=== PATIENT | female | born 1980 | race African-American/Black ===

== ENCOUNTER → 2017-12-05 | Outpatient (CLI) | payer OTHER | END | disposition home or self-care (01) | LOC: US 14:57 | DX: E04.1 Nontoxic single thyroid nodule (principal) | CPT/HCPCS: 76536 ==

== ENCOUNTER 2018-03-25 09:11 | Observation (INO) | payer OTHER ==
[2018-03-25] VITALS (8 sets, daily range): BP systolic 119–177; BP diastolic 72–77
[~2018-03-25] VITALS: Ht 165.1 cm; Wt 97.2 kg
[2018-03-25] MEDS ORDERED: LIDOCAINE 1% PF 2 ML VIAL. ID PRN (09:45)
[2018-03-25] MEDS ORDERED: fentaNYL PF VIAL 100 MCG/2 ML VIAL IV PRN (09:45)
[2018-03-25] MEDS ORDERED: MIDAZOLAM HCL/PF 2 MG/2 ML VIAL. IV PRN (09:45)
[2018-03-25] MEDS: IV RINGERS,LACTATED 1000ML 1,000 ML IV SCH ×2 (10:00→17:45)
[2018-03-25] MEDS ORDERED: LIDOCAINE 2% PF Vial for OR 5 ML VIAL. ONE ×2 (10:10→14:27)
[2018-03-25] MEDS ORDERED: fentaNYL PF VIAL 100 MCG/2 ML VIAL ONE ×5 (10:10→16:20)
[2018-03-25] MEDS ORDERED: PROPOFOL 20 ML IV ONE ×2 (10:10→11:29)
[2018-03-25] MEDS ORDERED: MIDAZOLAM HCL/PF 2 MG/2 ML VIAL. ONE (10:10)
[2018-03-25 10:18] LABS: BASO % 1 % (0-3); EOS # 0.1 x10^3/uL (0.0-0.7); EOS % 2 % (0-3); HEMATOCRIT 40.1 % (36.0-47.0); HEMOGLOBIN 13.1 g/dL (12.0-15.5); LYMPH # 1.6 x10^3/uL (1.0-4.8); LYMPH % 26 % (24-48); MEAN CORPUSCULAR HEMOGLOBIN 25 pg (25-35); MEAN CORPUSCULAR HGB CONC 33 g/dL (31-37); MEAN CORPUSCULAR VOLUME 77 fL (79-100); MONO # 0.4 x10^3/uL (0.0-1.1); MONO % 6 % (0-9); NEUT # 4.1 x10^3uL (1.8-7.7); NEUT % 66 % (31-73); PLATELET COUNT 306 x10^3/uL (140-400); RED BLOOD COUNT 5.19 x10^6/uL (3.50-5.40); RED CELL DISTRIBUTION WIDTH 16.9 % (11.5-14.5); WHITE BLOOD COUNT 6.2 x10^3/uL (4.0-11.0)
[2018-03-25 10:20] LABS: U PREG PATIENT NEGATIVE (NEG)
[2018-03-25 10:27] LABS: CALCIUM 9.2 mg/dL (8.5-10.1); CREATININE 0.8 mg/dL (0.6-1.0); GFR 98.2; POTASSIUM 4.1 mmol/L (3.5-5.1)
[2018-03-25 10:33] LABS: ALBUMIN 3.4 g/dL (3.4-5.0); TOTAL PROTEIN 8.1 g/dL (6.4-8.2)
[2018-03-25 10:34] LABS: ALBUMIN/GLOBULIN RATIO 0.7 (1.0-1.7); TOTAL BILIRUBIN 0.3 mg/dL (0.2-1.0)
[2018-03-25] MEDS ORDERED: DEXAMETHASONE SOD PHOS 20 MG/5 ML VIAL. ONE (10:38)
[2018-03-25] MEDS ORDERED: ONDANSETRON PF 4 MG/2 ML VIAL. ONE (10:38)
[2018-03-25] MEDS ORDERED: SUCCINYLCHOLINE 200 MG/10 ML VIAL. ONE (10:39)
[2018-03-25 10:40] LABS: PROTHROMBIN TIME PATIENT 13.5 SEC (11.7-14.0)
--- NOTE | 2018-03-25 11:21 | PDOC ---
SURGICAL PROGRESS NOTE Subjective No change in dictated H&P. Vital Signs Vital Signs Date Time Temp Pulse Resp B/P (MAP) Pulse Ox O2 Delivery O2 Flow Rate FiO2 03/25/18 09:41 97.4 89 18 119/69 98 Room Air 97.4 Labs Laboratory Tests Test 03/25/18 09:20 03/25/18 09:55 Urine Test Negative (NEG) White Blood Count 6.2 x10^3/uL (4.0-11.0) Red Blood Count 5.19 x10^6/uL (3.50-5.40) Hemoglobin 13.1 g/dL (12.0-15.5) Hematocrit 40.1 % (36.0-47.0) Mean Corpuscular Volume 77 fL (79-100) Mean Corpuscular Hemoglobin 25 pg (25-35) Mean Corpuscular Hemoglobin Concent 33 g/dL (31-37) Red Cell Distribution Width 16.9 % (11.5-14.5) Platelet Count 306 x10^3/uL (140-400) Neutrophils (%) (Auto) 66 % (31-73) Lymphocytes (%) (Auto) 26 % (24-48) Monocytes (%) (Auto) 6 % (0-9) Eosinophils (%) (Auto) 2 % (0-3) Basophils (%) (Auto) 1 % (0-3) Neutrophils # (Auto) 4.1 x10^3uL (1.8-7.7) Lymphocytes # (Auto) 1.6 x10^3/uL (1.0-4.8) Monocytes # (Auto) 0.4 x10^3/uL (0.0-1.1) Eosinophils # (Auto) 0.1 x10^3/uL (0.0-0.7) Basophils # (Auto) 0.0 x10^3/uL (0.0-0.2) Prothrombin Time 13.5 SEC (11.7-14.0) Prothromb Time International Ratio 1.1 (0.8-1.1) Activated Partial Thromboplast Time 29 SEC (24-38) Sodium Level 137 mmol/L (136-145) Potassium Level 4.1 mmol/L (3.5-5.1) Chloride Level 103 mmol/L (98-107) Carbon Dioxide Level 25 mmol/L (21-32) Anion Gap 9 (6-14) Blood Urea Nitrogen 7 mg/dL (7-20) Creatinine 0.8 mg/dL (0.6-1.0) Estimated GFR (Cockcroft-Gault) 98.2 BUN/Creatinine Ratio 9 (6-20) Glucose Level 108 mg/dL (70-99) Calcium Level 9.2 mg/dL (8.5-10.1) Total Bilirubin 0.3 mg/dL (0.2-1.0) Aspartate Amino Transf (AST/SGOT) 21 U/L (15-37) Alanine Aminotransferase (ALT/SGPT) 23 U/L (14-59) Alkaline Phosphatase 88 U/L (46-116) Total Protein 8.1 g/dL (6.4-8.2) Albumin 3.4 g/dL (3.4-5.0) Albumin/Globulin Ratio 0.7 (1.0-1.7) Laboratory Tests Test 03/25/18 09:20 03/25/18 09:55 Urine Test Negative (NEG) White Blood Count 6.2 x10^3/uL (4.0-11.0) Red Blood Count 5.19 x10^6/uL (3.50-5.40) Hemoglobin 13.1 g/dL (12.0-15.5) Hematocrit 40.1 % (36.0-47.0) Mean Corpuscular Volume 77 fL (79-100) Mean Corpuscular Hemoglobin 25 pg (25-35) Mean Corpuscular Hemoglobin Concent 33 g/dL (31-37) Red Cell Distribution Width 16.9 % (11.5-14.5) Platelet Count 306 x10^3/uL (140-400) Neutrophils (%) (Auto) 66 % (31-73) Lymphocytes (%) (Auto) 26 % (24-48) Monocytes (%) (Auto) 6 % (0-9) Eosinophils (%) (Auto) 2 % (0-3) Basophils (%) (Auto) 1 % (0-3) Neutrophils # (Auto) 4.1 x10^3uL (1.8-7.7) Lymphocytes # (Auto) 1.6 x10^3/uL (1.0-4.8) Monocytes # (Auto) 0.4 x10^3/uL (0.0-1.1) Eosinophils # (Auto) 0.1 x10^3/uL (0.0-0.7) Basophils # (Auto) 0.0 x10^3/uL (0.0-0.2) Prothrombin Time 13.5 SEC (11.7-14.0) Prothromb Time International Ratio 1.1 (0.8-1.1) Activated Partial Thromboplast Time 29 SEC (24-38) Sodium Level 137 mmol/L (136-145) Potassium Level 4.1 mmol/L (3.5-5.1) Chloride Level 103 mmol/L (98-107) Carbon Dioxide Level 25 mmol/L (21-32) Anion Gap 9 (6-14) Blood Urea Nitrogen 7 mg/dL (7-20) Creatinine 0.8 mg/dL (0.6-1.0) Estimated GFR (Cockcroft-Gault) 98.2 BUN/Creatinine Ratio 9 (6-20) Glucose Level 108 mg/dL (70-99) Calcium Level 9.2 mg/dL (8.5-10.1) Total Bilirubin 0.3 mg/dL (0.2-1.0) Aspartate Amino Transf (AST/SGOT) 21 U/L (15-37) Alanine Aminotransferase (ALT/SGPT) 23 U/L (14-59) Alkaline Phosphatase 88 U/L (46-116) Total Protein 8.1 g/dL (6.4-8.2) Albumin 3.4 g/dL (3.4-5.0) Albumin/Globulin Ratio 0.7 (1.0-1.7) CHERIE CHÁVEZ MD Mar 25, 2018 11:21
--- NOTE | 2018-03-25 11:21 | HP ---
ADMIT DATE: 03/25/2018 HISTORY OF PRESENT ILLNESS: The patient had been referred to me because of a large thyroid mass. She has been worked up and found to have a huge mass of the right thyroid, displacing the trachea quite a bit to the left. She has had this mass for about 20 years and it has gotten larger and causes her difficulty sleeping at night when she lies down and she cannot breathe. Otherwise, she appears to be relatively well and does not have trouble eating. PAST MEDICAL HISTORY: Shows that she has had normal childhood diseases. She does not have hypertension or other diseases that she is treated for and takes no medicine. She has no allergies and otherwise is doing well. She is about 7-8 months post-delivery of a child obviously. SOCIAL HISTORY: Shows she does not smoke, drink or use drugs. FAMILY HISTORY: Positive, in that she has, I think 2 sisters and aunts that have goiter, someone has had surgery. She is from [place], but otherwise no other significant family history. REVIEW OF SYSTEMS: Shows she has only the problem with the sleeping at night. She gets short of breath and gets start to choke with this thyroid there. Otherwise, she has no trouble eating, walking or doing other activities. She has no GI symptoms or respiratory or cardiovascular problems. PHYSICAL EXAMINATION: GENERAL: Shows an alert female, in no acute distress. HEAD, EARS, EYES, NOSE AND THROAT: Grossly normal. CHEST: Clear to auscultation bilaterally. HEART: Had no murmurs, heaves, friction rubs or thrills and had a rate of about 75 beats per minute and it was regular. ABDOMEN: Grossly normal. NECK: Examination of the neck; however, did show a large mass anterior and to the right of the trachea. It appears to be relatively high and is not very tender. It appears to be where thyroid should be, but it is quite obvious and protuberant being the part that we could see, probably 4-6 cm in size. EXTREMITIES: Grossly normal. RECTAL AND PELVIC Not done. IMPRESSION: Large goiter of the neck. CHERIE CHÁVEZ MD DR: LINCOLN/carmencita JOB#: [id number] / [id number]
--- NOTE | 2018-03-25 11:24 | PDOC ---
SURGICAL PROGRESS NOTE Subjective Op Note: surgeon.............................................Louis Pre op diag.......................................large symptomatic goiter Post op diag......................................same Anesthesia........................................General Procedure..........................................thyroidectomy Blood loss........................................25cc Drains..............................................none Fluids..............................................see anesthesia sheet Condition.........................................satisfactory Vital Signs Vital Signs Date Time Temp Pulse Resp B/P (MAP) Pulse Ox O2 Delivery O2 Flow Rate FiO2 03/25/18 09:41 97.4 89 18 119/69 98 Room Air 97.4 Labs Laboratory Tests Test 03/25/18 09:20 03/25/18 09:55 Urine Test Negative (NEG) White Blood Count 6.2 x10^3/uL (4.0-11.0) Red Blood Count 5.19 x10^6/uL (3.50-5.40) Hemoglobin 13.1 g/dL (12.0-15.5) Hematocrit 40.1 % (36.0-47.0) Mean Corpuscular Volume 77 fL (79-100) Mean Corpuscular Hemoglobin 25 pg (25-35) Mean Corpuscular Hemoglobin Concent 33 g/dL (31-37) Red Cell Distribution Width 16.9 % (11.5-14.5) Platelet Count 306 x10^3/uL (140-400) Neutrophils (%) (Auto) 66 % (31-73) Lymphocytes (%) (Auto) 26 % (24-48) Monocytes (%) (Auto) 6 % (0-9) Eosinophils (%) (Auto) 2 % (0-3) Basophils (%) (Auto) 1 % (0-3) Neutrophils # (Auto) 4.1 x10^3uL (1.8-7.7) Lymphocytes # (Auto) 1.6 x10^3/uL (1.0-4.8) Monocytes # (Auto) 0.4 x10^3/uL (0.0-1.1) Eosinophils # (Auto) 0.1 x10^3/uL (0.0-0.7) Basophils # (Auto) 0.0 x10^3/uL (0.0-0.2) Prothrombin Time 13.5 SEC (11.7-14.0) Prothromb Time International Ratio 1.1 (0.8-1.1) Activated Partial Thromboplast Time 29 SEC (24-38) Sodium Level 137 mmol/L (136-145) Potassium Level 4.1 mmol/L (3.5-5.1) Chloride Level 103 mmol/L (98-107) Carbon Dioxide Level 25 mmol/L (21-32) Anion Gap 9 (6-14) Blood Urea Nitrogen 7 mg/dL (7-20) Creatinine 0.8 mg/dL (0.6-1.0) Estimated GFR (Cockcroft-Gault) 98.2 BUN/Creatinine Ratio 9 (6-20) Glucose Level 108 mg/dL (70-99) Calcium Level 9.2 mg/dL (8.5-10.1) Total Bilirubin 0.3 mg/dL (0.2-1.0) Aspartate Amino Transf (AST/SGOT) 21 U/L (15-37) Alanine Aminotransferase (ALT/SGPT) 23 U/L (14-59) Alkaline Phosphatase 88 U/L (46-116) Total Protein 8.1 g/dL (6.4-8.2) Albumin 3.4 g/dL (3.4-5.0) Albumin/Globulin Ratio 0.7 (1.0-1.7) Laboratory Tests Test 03/25/18 09:20 03/25/18 09:55 Urine Test Negative (NEG) White Blood Count 6.2 x10^3/uL (4.0-11.0) Red Blood Count 5.19 x10^6/uL (3.50-5.40) Hemoglobin 13.1 g/dL (12.0-15.5) Hematocrit 40.1 % (36.0-47.0) Mean Corpuscular Volume 77 fL (79-100) Mean Corpuscular Hemoglobin 25 pg (25-35) Mean Corpuscular Hemoglobin Concent 33 g/dL (31-37) Red Cell Distribution Width 16.9 % (11.5-14.5) Platelet Count 306 x10^3/uL (140-400) Neutrophils (%) (Auto) 66 % (31-73) Lymphocytes (%) (Auto) 26 % (24-48) Monocytes (%) (Auto) 6 % (0-9) Eosinophils (%) (Auto) 2 % (0-3) Basophils (%) (Auto) 1 % (0-3) Neutrophils # (Auto) 4.1 x10^3uL (1.8-7.7) Lymphocytes # (Auto) 1.6 x10^3/uL (1.0-4.8) Monocytes # (Auto) 0.4 x10^3/uL (0.0-1.1) Eosinophils # (Auto) 0.1 x10^3/uL (0.0-0.7) Basophils # (Auto) 0.0 x10^3/uL (0.0-0.2) Prothrombin Time 13.5 SEC (11.7-14.0) Prothromb Time International Ratio 1.1 (0.8-1.1) Activated Partial Thromboplast Time 29 SEC (24-38) Sodium Level 137 mmol/L (136-145) Potassium Level 4.1 mmol/L (3.5-5.1) Chloride Level 103 mmol/L (98-107) Carbon Dioxide Level 25 mmol/L (21-32) Anion Gap 9 (6-14) Blood Urea Nitrogen 7 mg/dL (7-20) Creatinine 0.8 mg/dL (0.6-1.0) Estimated GFR (Cockcroft-Gault) 98.2 BUN/Creatinine Ratio 9 (6-20) Glucose Level 108 mg/dL (70-99) Calcium Level 9.2 mg/dL (8.5-10.1) Total Bilirubin 0.3 mg/dL (0.2-1.0) Aspartate Amino Transf (AST/SGOT) 21 U/L (15-37) Alanine Aminotransferase (ALT/SGPT) 23 U/L (14-59) Alkaline Phosphatase 88 U/L (46-116) Total Protein 8.1 g/dL (6.4-8.2) Albumin 3.4 g/dL (3.4-5.0) Albumin/Globulin Ratio 0.7 (1.0-1.7) CHERIE CHÁVEZ MD Mar 25, 2018 11:24
[2018-03-25] MEDS ORDERED: ESMOLOL 100 MG/10 ML VIAL. IV ONE (12:35)
[2018-03-25] MEDS ORDERED: DESFLURANE > 120 MINUTES IH ONE (12:35)
[2018-03-25] MEDS ORDERED: GELATIN SPONGE SIZE 100. ONE (12:39)
[2018-03-25] MEDS ORDERED: THROMBIN TOPICAL 5,000 UNIT VIAL. ONE ×2 (12:40→13:16)
[2018-03-25] MEDS ORDERED: PHENYLEPHRINE in 0.9% NACL PF 1 MG/10 ML SYRINGE. IV ONE (14:00)
[2018-03-25] MEDS ORDERED: 0.9 % SODIUM CHLORIDE 10 ML DISP.SYRIN. IV PRN (15:15)
[2018-03-25] MEDS ORDERED: ONDANSETRON PF 4 MG/2 ML VIAL. IV PRN (15:15)
[2018-03-25] MEDS ORDERED: HYDROcodone/APAP 5/325MG 1 TAB TABLET PO PRN (15:15)
[2018-03-25] MEDS: fentaNYL PF VIAL 100 MCG/2 ML VIAL IV PRN ×3 (15:35→16:31)
[2018-03-25] MEDS: POTASSIUM CL 20MEQ-0.45% NACL 1,000 ML IV SCH (17:02)
[2018-03-25] MEDS ORDERED: MEDR150V3 IM (17:07)
[2018-03-25] MEDS ORDERED: IV NORMAL SALINE 1000ML BAG 1,000 ML IV SCH (19:37)
[2018-03-25] MEDS ORDERED: MORPHINE SULFATE/PF 30 ML IV PRN (19:45)
[2018-03-25] MEDS ORDERED: NALOXONE 0.4 MG/ML VIAL. IV PRN (19:45)
[2018-03-25] MEDS: DOCUSATE SODIUM 100 MG CAPSULE. PO SCH (21:00)
[2018-03-25] MEDS: FAMOTIDINE 20 MG/2 ML VIAL IVP SCH (21:31)
[2018-03-26 03:25] VITALS: BP 114/68
[2018-03-26] MEDS: POTASSIUM CL 20MEQ-0.45% NACL 1,000 ML IV SCH ×2 (03:50→12:15)
--- NOTE | 2018-03-26 04:33 | OP ---
DATE OF SURGERY: INDICATION: The patient comes to the hospital and surgical room because of a large goiter, mostly on the right side, which was causing her discomfort and she was having trouble breathing and being choked at night. She was euthyroid by our scans and lab tests done prior to surgery. She wishes to have this removed, as she was having more and more difficulty sleeping and breathing. DETAILS OF PROCEDURE: As such, the patient was properly prepped and draped in routine fashion. A collar incision was made following the skin lines with a 15 blade about a centimeter or two above the sternal notch. We followed the skin lines, as this would give the best her cosmetic result. We made an incision little larger than normal between the medial edges of the sternocleidomastoid muscles or more. We then identified the platysma muscle, went through this with cautery. We then developed flaps high up in the neck under the platysma muscle and down towards the sternal notch. We did this mostly with cautery and small bleeders were controlled with cautery. We had trouble identifying the midline as a large mass, which was about 8-10 cm in size. It was there and had distorted the anatomy tremendously. As such, we divided between the strap muscles and we were able to get down to the fascia. The false thyroid capsule then went under this and to the thyroid. We then used fingers, mostly to go around this mass and delivered it somewhat into the wound. Luckily, we did not have to divide the strap muscles. We pulled it up and it was easier with this large mass to divide the superior vessels first. We did this and it should be noted that there were very large vessels to this very large mass and this was thyroid tissue and this was completely removed on the right. We slowly took down the vessels to go into the superior portion of the thyroid and tied with 2-0 and 0 silk sutures. We had to use large sutures because of the size of the vessels. We slowly did this in a serial fashion staying relatively close to the thyroid making certain not to damage the parathyroids. We did this, then were able to deliver more and divided the lateral vein and tied it and then get the inferior portions. We then went past the isthmus on the front of the trachea over to the left side. We decided it would be easier to remove this and did send to pathologist and pathologist said he could not do anything permanent sections and could not tell me if it was a tumor or not. We did identify the recurrent laryngeal nerve on the right and did not damage it during the procedure. The NIMs was used also. We then could not find a large mass in the left thyroid. We called the radiologist and reviewed all the films and there was just a small cyst, nothing that looked malignant on that side and in the view of her fairly brisk bleeding, losing about 300 mL, we decided best to leave this and not deal with this at this point, as there was no evidence that it was significantly diseased and not enlarged. The patient had this mass for about 15 years and therefore, we felt that it would not be malignant. At any rate, we then amputated the thyroid gland with the isthmus. There was fair amount of brisk bleeding, which we had used suture ligatures of 2-0 silk to stop the bleeding. We did stop all the bleeding, applied Gelfoam with thrombin to the area and there was no further bleeding or oozing from anywhere. We inspected the area. No further difficulties were noted. We decided not to use a drain, as there was no further bleeding and talked to the pathologist and did not remove the left side. We then proceeded to close the wound as we irrigated the wound and then approximated the platysmas with an interrupted 4-0 Vicryl and then the skin was closed using 6-0 interrupted nylon. A sterile dressing was applied and the procedure was terminated. Blood loss as stated before was about 300 mL. Fluids given can be obtained from the anesthesia sheet. No drains were used. The patient had no difficulties during the procedure and operation was terminated. Before we sent the patient to recovery room, we did do direct laryngoscopy and saw that both vocal cords were working normally. This terminated the procedure. As stated before, there were no drains. ESTIMATED BLOOD LOSS: 300 mL. FLUIDS GIVEN: Can be obtained from the anesthesia sheet. CONDITION OF THE PATIENT: Satisfactory as she is returned to the recovery room. CHERIE CHÁVEZ MD DR: LINCOLN/carmencita JOB#: [id number] / [id number]
[2018-03-26 05:13] LABS: BASO % 0 % (0-3); EOS % 0 % (0-3); HEMATOCRIT 33.3 % (36.0-47.0); LYMPH # 0.8 x10^3/uL (1.0-4.8); LYMPH % 7 % (24-48); MEAN CORPUSCULAR HEMOGLOBIN 25 pg (25-35); MEAN CORPUSCULAR HGB CONC 33 g/dL (31-37); MEAN CORPUSCULAR VOLUME 77 fL (79-100); MONO # 0.5 x10^3/uL (0.0-1.1); MONO % 4 % (0-9); NEUT # 10.8 x10^3uL (1.8-7.7); NEUT % 90 % (31-73); PLATELET COUNT 326 x10^3/uL (140-400); RED BLOOD COUNT 4.35 x10^6/uL (3.50-5.40); RED CELL DISTRIBUTION WIDTH 17.3 % (11.5-14.5); WHITE BLOOD COUNT 12.1 x10^3/uL (4.0-11.0)
[2018-03-26 06:04] LABS: CALCIUM 8.5 mg/dL (8.5-10.1); CREATININE 0.8 mg/dL (0.6-1.0); GFR 98.2; POTASSIUM 4.1 mmol/L (3.5-5.1)
[2018-03-26 06:09] LABS: ALBUMIN/GLOBULIN RATIO 0.7 (1.0-1.7); TOTAL BILIRUBIN 0.3 mg/dL (0.2-1.0); TOTAL PROTEIN 7.2 g/dL (6.4-8.2)
[2018-03-26 07:00] VITALS: BP 118/71
[2018-03-26] MEDS: DOCUSATE SODIUM 100 MG CAPSULE. PO SCH (09:00)
[2018-03-26] MEDS: FAMOTIDINE 20 MG/2 ML VIAL IVP SCH (09:12)
--- NOTE | 2018-03-26 10:21 | PDOC ---
SURGICAL PROGRESS NOTE Subjective POD# 1 Doing well with normal voice and has the expected "sore throat". Lab noted and CA is normal \\. Dressing changed and there is no hematoma or bleeding. Has the expected stiffness. Will discharge today and instruction given. Will give tynlenol eloixir with cod for pain and likely start sythroid later as outpatient. Vital Signs Vital Signs Date Time Temp Pulse Resp B/P (MAP) Pulse Ox O2 Delivery O2 Flow Rate FiO2 03/26/18 08:00 Room Air 03/26/18 07:00 98.8 103 18 118/71 (87) 97 98.8 03/25/18 15:35 10.0 I&O Intake and Output 03/26/18 07:00 Intake Total 2620 ml Output Total 860 ml Balance 1760 ml Intake Oral 320 ml IV Total 2300 ml Output Urine Total 360 ml Estimated Blood Loss 500 ml # Voids 3 Labs Laboratory Tests Test 03/25/18 09:20 03/25/18 09:55 03/26/18 04:00 Urine Test Negative (NEG) White Blood Count 6.2 x10^3/uL (4.0-11.0) 12.1 x10^3/uL (4.0-11.0) Red Blood Count 5.19 x10^6/uL (3.50-5.40) 4.35 x10^6/uL (3.50-5.40) Hemoglobin 13.1 g/dL (12.0-15.5) 11.0 g/dL (12.0-15.5) Hematocrit 40.1 % (36.0-47.0) 33.3 % (36.0-47.0) Mean Corpuscular Volume 77 fL (79-100) 77 fL (79-100) Mean Corpuscular Hemoglobin 25 pg (25-35) 25 pg (25-35) Mean Corpuscular Hemoglobin Concent 33 g/dL (31-37) 33 g/dL (31-37) Red Cell Distribution Width 16.9 % (11.5-14.5) 17.3 % (11.5-14.5) Platelet Count 306 x10^3/uL (140-400) 326 x10^3/uL (140-400) Neutrophils (%) (Auto) 66 % (31-73) 90 % (31-73) Lymphocytes (%) (Auto) 26 % (24-48) 7 % (24-48) Monocytes (%) (Auto) 6 % (0-9) 4 % (0-9) Eosinophils (%) (Auto) 2 % (0-3) 0 % (0-3) Basophils (%) (Auto) 1 % (0-3) 0 % (0-3) Neutrophils # (Auto) 4.1 x10^3uL (1.8-7.7) 10.8 x10^3uL (1.8-7.7) Lymphocytes # (Auto) 1.6 x10^3/uL (1.0-4.8) 0.8 x10^3/uL (1.0-4.8) Monocytes # (Auto) 0.4 x10^3/uL (0.0-1.1) 0.5 x10^3/uL (0.0-1.1) Eosinophils # (Auto) 0.1 x10^3/uL (0.0-0.7) 0.0 x10^3/uL (0.0-0.7) Basophils # (Auto) 0.0 x10^3/uL (0.0-0.2) 0.0 x10^3/uL (0.0-0.2) Prothrombin Time 13.5 SEC (11.7-14.0) Prothromb Time International Ratio 1.1 (0.8-1.1) Activated Partial Thromboplast Time 29 SEC (24-38) Sodium Level 137 mmol/L (136-145) 138 mmol/L (136-145) Potassium Level 4.1 mmol/L (3.5-5.1) 4.1 mmol/L (3.5-5.1) Chloride Level 103 mmol/L (98-107) 103 mmol/L (98-107) Carbon Dioxide Level 25 mmol/L (21-32) 24 mmol/L (21-32) Anion Gap 9 (6-14) 11 (6-14) Blood Urea Nitrogen 7 mg/dL (7-20) 9 mg/dL (7-20) Creatinine 0.8 mg/dL (0.6-1.0) 0.8 mg/dL (0.6-1.0) Estimated GFR (Cockcroft-Gault) 98.2 98.2 BUN/Creatinine Ratio 9 (6-20) 11 (6-20) Glucose Level 108 mg/dL (70-99) 129 mg/dL (70-99) Calcium Level 9.2 mg/dL (8.5-10.1) 8.5 mg/dL (8.5-10.1) Total Bilirubin 0.3 mg/dL (0.2-1.0) 0.3 mg/dL (0.2-1.0) Aspartate Amino Transf (AST/SGOT) 21 U/L (15-37) 16 U/L (15-37) Alanine Aminotransferase (ALT/SGPT) 23 U/L (14-59) 21 U/L (14-59) Alkaline Phosphatase 88 U/L (46-116) 74 U/L (46-116) Total Protein 8.1 g/dL (6.4-8.2) 7.2 g/dL (6.4-8.2) Albumin 3.4 g/dL (3.4-5.0) 3.0 g/dL (3.4-5.0) Albumin/Globulin Ratio 0.7 (1.0-1.7) 0.7 (1.0-1.7) Thyroid Stimulating Hormone (TSH) 0.813 uIU/mL (0.358-3.74) Laboratory Tests Test 03/26/18 04:00 White Blood Count 12.1 x10^3/uL (4.0-11.0) Red Blood Count 4.35 x10^6/uL (3.50-5.40) Hemoglobin 11.0 g/dL (12.0-15.5) Hematocrit 33.3 % (36.0-47.0) Mean Corpuscular Volume 77 fL (79-100) Mean Corpuscular Hemoglobin 25 pg (25-35) Mean Corpuscular Hemoglobin Concent 33 g/dL (31-37) Red Cell Distribution Width 17.3 % (11.5-14.5) Platelet Count 326 x10^3/uL (140-400) Neutrophils (%) (Auto) 90 % (31-73) Lymphocytes (%) (Auto) 7 % (24-48) Monocytes (%) (Auto) 4 % (0-9) Eosinophils (%) (Auto) 0 % (0-3) Basophils (%) (Auto) 0 % (0-3) Neutrophils # (Auto) 10.8 x10^3uL (1.8-7.7) Lymphocytes # (Auto) 0.8 x10^3/uL (1.0-4.8) Monocytes # (Auto) 0.5 x10^3/uL (0.0-1.1) Eosinophils # (Auto) 0.0 x10^3/uL (0.0-0.7) Basophils # (Auto) 0.0 x10^3/uL (0.0-0.2) Sodium Level 138 mmol/L (136-145) Potassium Level 4.1 mmol/L (3.5-5.1) Chloride Level 103 mmol/L (98-107) Carbon Dioxide Level 24 mmol/L (21-32) Anion Gap 11 (6-14) Blood Urea Nitrogen 9 mg/dL (7-20) Creatinine 0.8 mg/dL (0.6-1.0) Estimated GFR (Cockcroft-Gault) 98.2 BUN/Creatinine Ratio 11 (6-20) Glucose Level 129 mg/dL (70-99) Calcium Level 8.5 mg/dL (8.5-10.1) Total Bilirubin 0.3 mg/dL (0.2-1.0) Aspartate Amino Transf (AST/SGOT) 16 U/L (15-37) Alanine Aminotransferase (ALT/SGPT) 21 U/L (14-59) Alkaline Phosphatase 74 U/L (46-116) Total Protein 7.2 g/dL (6.4-8.2) Albumin 3.0 g/dL (3.4-5.0) Albumin/Globulin Ratio 0.7 (1.0-1.7) Thyroid Stimulating Hormone (TSH) 0.813 uIU/mL (0.358-3.74) CHERIE CHÁVEZ MD Mar 26, 2018 10:21
[2018-03-26] MEDS ORDERED: BENZOCAINE/MENTHOL LOZENGE. PO PRN (10:30)
[2018-03-26] MEDS ORDERED: PHENOL ORAL SPRAY 177ML BOTTLE. PO PRN (10:30)
[2018-03-26 11:00] VITALS: BP 122/74
--- NOTE | 2018-03-26 13:29 | DS ---
DATE OF DISCHARGE: HOSPITAL COURSE: The patient had a large goiter, which was causing her difficulty to breathe and in fact on the day of admission to this hospital she had excision of this large mass, which was mostly on the right side. There were small nodules which Radiology thought were inconsequential on the left and they were not large and the gland was normal in size. She was euthyroid preop. The mass was quite large. She had the partial thyroidectomy with isthmusectomy on the right. Postoperatively, she is doing well. Calcium is normal this morning. She lost about 200-300 mL of blood, but is doing well. She has no hematoma, no swelling, no bleeding at the surgical site. She has a normal voice and is doing well. She just has soreness when she swallows, but otherwise is doing well. She wishes to go home. We would discharge her and follow her in 5 days in the office and she knows to just take food that she can swallow, and we will give her Percocet 7.5/325 for pain. We would not start thyroid medicine yet. She understands that this may be started at a later date. The wound looked fine now. There is no evidence of hematoma, no bleeding and she has good cosmetic result. We will see her back in 5 days in the office. IMPRESSION: Large tumor, right thyroid. No evidence of malignancy yet. We will await path report. CHERIE CHÁVEZ MD DR: LINCOLN/carmencita JOB#: [id number] / [id number]
[2018-03-26 14:27] LABS: % LYMPHS 10 % (24-48); % MONOS 1 % (0-10); % SEGS 89 % (35-66); ANISOCYTOSIS SLIGHT; PLT ESTIMATE ADEQUATE (ADEQUATE)
[2018-03-26 14:28] LABS: BURR CELLS OCC
[2018-03-26 15:00] VITALS: BP 109/72
--- NOTE | 2018-04-01 13:09 | PATHOLOGY ---
[facility] Accession Number: [id number] . 01 Material submitted: . RIGHT THYROID - FS . 01 Clinician provided ICD-10: E04.9 . 01 Clinical history: . Thyroid goiter . 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 . (Please see comment.) . (RADHAM:vjm;03/28/2018) [facility]/03/28/2018 . 02 Comment: No evidence of thyroid carcinoma is seen in Block A2 with the HBME and CK19 immunoperoxidase stains. . Review/Concur: Dr. Choudhury. (SKM:vjm;03/28/2018) . 02 Electronically signed: . Alireza Portillo MD, Pathologist NPI- [id number] . 01 Gross description: . The specimen is received in formalin, labeled "Alana Abad, right thyroid" and consists of a 63 g unoriented lobe of thyroid measuring 5.6 x 4.6 x 3.5 cm. The lobe is markedly disrupted with a kitchen-brown nodule protruding from the disruption. The remainder of the capsule is kitchen-brown and smooth with thin adhesions. The intact capsule is inked black and the disruption orange. Sectioning reveals the lobe is almost entirely replaced by a kitchen-brown nodule measuring 5.3 x 4.5 x 3.5 cm. The cut surfaces variegate from firm/spongy to soft/hemorrhagic/cystic. Multiple colloid nodules are also present ranging from 0.1 cm to 0.8 cm. Also present in the container are 2 segments of possible thyroid tissue/nodule measuring 2.3 x 1.2 x 0.6 cm and 1.5 x 1.1 x 0.5 cm. [employer] sections are submitted as follows: . A1: One pole A2: Opposite pole A3-A9: Largest nodule with relationship to intact capsule and orange ink disruption A10: Additionally received tissue (SARAY; 03/27/2018) SYU/SYU . 02 Pathologist provided ICD-10: D34 . 02 CPT . 543404, M79311, I65001 Specimen Comment: A courtesy copy of this report has been sent to Specimen Comment: [phone]. Specimen Comment: Report sent to [facility]formed at: [facility] [address] [id number] MD Odin Glover MD Phone: [phone] Performed at: 02 [facility] [address] [place] [id number] MD Tyler Sparks MD Phone: [phone]
== END 2018-03-26 17:00 | disposition home or self-care (01) ==
LOC: SURG 09:11 → 4 NORTH 17:15
PROVIDERS: ADMIT Specialist; ATTEND Specialist
DX: E04.9 Nontoxic goiter, unspecified (principal); E89.0 Postprocedural hypothyroidism
CPT/HCPCS: 36415; 60240; 80053; 81025; 84443; 85007; 85025; 85610; 85730; 90471; 90756; 96365; 96375; 96376; A7015; G0378; G0379; J0330; J1100; J2001; J2250; J2270; J2370; J2405; J2704; J3010; J3490; J7120; 88307; 88341; 88342; Q2035